=== PATIENT | male | born 1985 | race American Indian/Alaskan Native ===

== ENCOUNTER 2018-07-31 13:32 | Emergency (ER) | payer OTHER ==
[2018-07-31 14:06] VITALS: BP 141/81
[2018-07-31] MEDS ORDERED: DECADRON IM ONE (16:32)
[2018-07-31] MEDS ORDERED: ZOFRAN ODT PO ONE (16:32)
[2018-07-31] MEDS ORDERED: MORPHINE IM ONE (16:32)
[2018-07-31] MEDS ORDERED: TORADOL IM ONE (16:32)
--- NOTE | 2018-07-31 16:40 | Emergency Department Report ---
ED General Adult HPI - General Chief complaint: Extremity Problem,Nontraumatic Stated complaint: NERVE PAIN Time Seen by Provider: 07/31/18 16:15 Source: patient Mode of arrival: Ambulatory Limitations: No Limitations - History of Present Illness Initial comments: Patient presents to emergency department with a chief complaint of sciatic nerve pain on the left side. Patient states for the last week associated this pain radiates from his left butt cheek and to his foot that he describes as "sensation". Patient states he tried medications that his mother had at home without relief. Patient denies any injury to his pelvis or leg. -: Gradual Location: lower extremity Radiation: non-radiation, extremity Severity scale (0 -10): 6 Quality: other (shooting ) Consistency: intermittent Improves with: rest Worsens with: movement Associated Symptoms: denies other symptoms, confusion Treatments Prior to Arrival: none - Related Data Previous Rx's Medication Instructions Recorded Last Taken Type HYDROcodone/ACETAMINOPHEN [[place] 1 each PO Q6HR PRN #20 tablet 07/31/18 Unknown Rx 10-325 Tablet] Ibuprofen [Motrin] 800 mg PO Q8HR PRN #30 tablet 07/31/18 Unknown Rx predniSONE [Deltasone] 20 mg PO QDAY #15 tab 07/31/18 Unknown Rx traMADol [Ultram] 50 mg PO Q6HR PRN #20 tablet 07/31/18 Unknown Rx Allergies Allergy/AdvReac Type Severity Reaction Status Date / Time No Known Allergies Allergy Unverified 07/31/18 14:07 ED Review of Systems ROS: Stated complaint: NERVE PAIN Other details as noted in HPI Comment: All other systems reviewed and negative Constitutional: denies: chills, fever Eyes: denies: eye pain, eye discharge, vision change ENT: denies: ear pain, throat pain Respiratory: denies: cough, shortness of breath, wheezing Cardiovascular: denies: chest pain, palpitations Endocrine: no symptoms reported Gastrointestinal: denies: abdominal pain, nausea, diarrhea Genitourinary: denies: urgency, dysuria Musculoskeletal: denies: back pain, joint swelling, arthralgia Skin: denies: rash, lesions Neurological: denies: headache, weakness, paresthesias Psychiatric: denies: anxiety, depression Hematological/Lymphatic: denies: easy bleeding, easy bruising ED Past Medical Hx - Past Medical History Previous Medical History?: No - Surgical History Past Surgical History?: No - Social History Smoking Status: Never Smoker Substance Use Type: None - Medications Home Medications: Home Medications Medication Instructions Recorded Confirmed Last Taken Type HYDROcodone/ACETAMINOPHEN [[place] 1 each PO Q6HR PRN #20 tablet 07/31/18 Unknown Rx 10-325 Tablet] Ibuprofen [Motrin] 800 mg PO Q8HR PRN #30 tablet 07/31/18 Unknown Rx predniSONE [Deltasone] 20 mg PO QDAY #15 tab 07/31/18 Unknown Rx traMADol [Ultram] 50 mg PO Q6HR PRN #20 tablet 07/31/18 Unknown Rx ED Physical Exam - General Limitations: No Limitations General appearance: alert, in no apparent distress - Head Head exam: Present: atraumatic, normocephalic - Eye Eye exam: Present: normal appearance, PERRL, EOMI - ENT ENT exam: Present: mucous membranes moist - Neck Neck exam: Present: normal inspection - Respiratory Respiratory exam: Present: normal lung sounds bilaterally. Absent: respiratory distress, wheezes, rales - Cardiovascular Cardiovascular Exam: Present: regular rate, normal rhythm. Absent: systolic murmur, diastolic murmur, rubs, gallop - GI/Abdominal GI/Abdominal exam: Present: soft, normal bowel sounds. Absent: distended, tenderness - Rectal Rectal exam: Present: deferred - Extremities Exam Extremities exam: Present: normal inspection, other (tenderness palpation of the left sciatic nerve outlet) - Back Exam Back exam: Present: normal inspection - Neurological Exam Neurological exam: Present: alert, oriented X3 - Psychiatric Psychiatric exam: Present: normal affect, normal mood - Skin Skin exam: Present: warm, dry, intact, normal color. Absent: rash ED Course Vital Signs 07/31/18 14:01 Temperature 98.5 F Pulse Rate 72 Respiratory 18 Rate Blood Pressure 141/81 O2 Sat by Pulse 97 Oximetry ED Medical Decision Making - Medical Decision Making Discussed results and plan care of patient Critical care attestation.: If time is entered above; I have spent that time in minutes in the direct care of this critically ill patient, excluding procedure time. ED Disposition Clinical Impression: Sciatica Disposition: DC-01 TO HOME OR SELFCARE Is pt being admited?: No Does the pt Need Aspirin: No Condition: Stable Instructions: Sciatica (ED) Additional Instructions: return if worse Prescriptions: HYDROcodone/ACETAMINOPHEN [Ed[place] 10-325 Tablet] 1 each PO Q6HR PRN #20 tablet PRN Reason: pain Ibuprofen [Motrin] 800 mg PO Q8HR PRN #30 tablet PRN Reason: pain predniSONE [Deltasone] 20 mg PO QDAY #15 tab traMADol [Ultram] 50 mg PO Q6HR PRN #20 tablet PRN Reason: Pain Time of Disposition: 16:40
== END 2018-07-31 17:13 | disposition home or self-care (01) ==
LOC: ED 13:32
DX: M54.30 Sciatica, unspecified side (principal)
CPT/HCPCS: 93971; 96372; 99283; J1100; J1885; J2270; Q0162